=== PATIENT | female | born 1970 | race Hispanic/Latino ===

== ENCOUNTER 2017-08-01 14:24 | Emergency (ER) | payer MEDICAID, OTHER ==
[2017-08-01] MEDS ORDERED: ACETAMINOPHEN EXTRA STRENGTH 500 MG TABLET ONE (14:51)
[2017-08-01] MEDS ORDERED: HYDROXYZINE HCL 25 MG TABLET ONE (16:10)
[2017-08-01 16:43] LABS: BASOPHILS % (AUTO) 0.5 % (0.0-5.0); EOSINOPHILS % (AUTO) 3.6 % (0.0-8.0); HEMATOCRIT 42.1 % (36-48); LYMPHOCYTES % (AUTO) 34.2 % (21.0-51.0); MEAN CORPUSCULAR HGB CONC 34.4 g/dL (32.0-36.0); MEAN CORPUSCULAR VOLUME 93.1 fL (79-99); MONOCYTES % (AUTO) 5.9 % (3.0-13.0); NEUTROPHILS % (AUTO) 55.8 % (40.0-77.0); PLATELET COUNT (AUTO) 228 K/uL (130-400); RED BLOOD CELL COUNT(AUTO) 4.53 MIL/uL (4.00-5.50); RED CELL DISTRIBUTION WIDTH 12.9 % (11.0-15.5); WHITE BLOOD COUNT (AUTO) 6.4 K/uL (4.8-10.8)
[2017-08-01 16:59] LABS: CREATININE 0.7 mg/dL (0.5-1.5); POTASSIUM 3.8 mmol/L (3.5-5.1)
== END 2017-08-01 17:14 | disposition home or self-care (01) ==
LOC: EDH 14:24
DX: S20.212A Contusion of left front wall of thorax, initial encounter (principal); M54.6 Pain in thoracic spine; R93.8 Abnormal findings on diagnostic imaging of other specified body structures; Z71.6 Tobacco abuse counseling; Z86.73 Personal history of transient ischemic attack (TIA), and cerebral infarction without residual deficits; Z88.8 Allergy status to other drugs, medicaments and biological substances; Z72.0 Tobacco use; W18.39XA Other fall on same level, initial encounter; Y93.89 Activity, other specified; Y92.89 Other specified places as the place of occurrence of the external cause; Y99.8 Other external cause status
CPT/HCPCS: 36415; 71046; 80048; 85025; 93005

== ENCOUNTER 2024-08-01 16:17 | Emergency (ER) | payer SELFPAY ==
[~2024-08-01] VITALS: Ht 165.1 cm; Wt 79.4 kg
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
--- NOTE | 2024-08-01 16:46 | EKG ---
[facility] Test Date: 2024-08-01 Test Time: 16:45:01 Pat Name: KANE SABA Department: ED Room: Gender: F Tap Builder: [id number] : 1970 Requested By: JAYA SWAIN Order Number: [id number] Reading MD: Dominique Zarate Measurements Intervals [place] Rate: 66 P: 36 [place]: 122 QRS: -6 QRSD: 79 T: 32 QT: 391 QTc: 409 Interpretive Statements Sinus rhythm Anterior infarct, age indeterminate Compared to ECG 08/01/2017 16:04:08 Myocardial infarct finding now present Electronically Signed On 08-03-2024 14:38:12 CDT by Dominique Zarate Please click the below link to view image of tracing.
[2024-08-01 17:13] VITALS: BP 125/80; PULSE 82; RESP 16; TEMP 98.3; O2SAT 98
== END 2024-08-01 17:25 | disposition home or self-care (01) ==
LOC: EDH 16:17
DX: F43.0 Acute stress reaction (principal); F41.1 Generalized anxiety disorder
CPT/HCPCS: 93005; 99283